=== PATIENT | female | born 1975 | race Caucasian/White ===

== ENCOUNTER → 2018-11-05 | Outpatient (CLI) | payer BC ==
--- NOTE | 2018-11-05 15:12 | Diagnostic Imaging Report ---
INDICATION: Left heel pain. TIME OF EXAM 2:47 PM FINDINGS: Three views of the left foot were obtained. There is a large plantar calcaneal spur. No definite fracture or stress reaction of the calcaneus is seen. Midfoot is unremarkable. Metatarsals are unremarkable. Phalanges are unremarkable. No fractures are seen. IMPRESSION: Plantar calcaneal spur. No other significant abnormality is seen. Dictated by: Dictated on workstation # [id number]
== END ==
LOC: RAD FS 14:39
PROVIDERS: ATTEND Nurse Practitioner Family
DX: M77.32 Calcaneal spur, left foot (principal)
CPT/HCPCS: 73630